=== PATIENT | female | born 1970 | race Caucasian/White ===

== ENCOUNTER 2018-04-26 09:00 | Day surgery (SDC) ==
[2014-03-11 14:30] VITALS: BMI 29.0
[2018-04-26 09:43] LABS: URINE PREGNANCY TEST NEGATIVE (NEGATIVE)
[2018-04-26 09:45] VITALS: TEMP 97.1
[2018-04-26] MEDS: LIDOCAINE 1% 20 ML MDV ID STA (09:45)
[2018-04-26] MEDS ORDERED: VERSED ONE (11:15)
[2018-04-26] MEDS ORDERED: DIPRIVAN 20 ML VIAL IVP ONE (11:15)
[2018-04-26 13:42] VITALS: BP 112/66
--- NOTE | 2018-04-27 13:36 | OP ---
PROCEDURE: COLONOSCOPY TO THE CECUM WITH SNARE POLYPECTOMY. ENDOSCOPIST: Loan GIL M.D. INDICATION: HISTORY OF HYPERPLASTIC POLYPS OF THE RIGHT COLON. INSTRUMENT: [id number]. MEDICATION: PER ANESTHESIA. PROCEDURE: The patient was positioned for colonoscopy. The digital rectal exam was negative. The colonoscope was inserted through the anus and advanced to the cecum. The cecum was identified using the ileocecal valve and the appendiceal orifice as landmarks. The scope was slowly withdrawn through a well-prepped colon. Mutual Bowel Prep Score = 9. At the hepatic flexure a 7 mm sessile polyp removed using snare cautery. Diverticulosis throughout the left colon. Retroflex exam otherwise normal. Withdrawal time 8 minutes and 18 seconds. PLAN: 1. Suggest repeat colonoscopy for surveillance in 5 years. CC: DR. BREANNE SPARKS
== END 2018-04-26 12:40 | disposition home or self-care (01) ==
LOC: SURG 09:00
PROVIDERS: ATTEND Internal Medicine Gastroenterology
DX: Z86.010 Personal history of colon polyps (principal); K63.5 Polyp of colon; D12.6 Benign neoplasm of colon, unspecified
CPT/HCPCS: 81025